=== PATIENT | female | born 1995 | race Hispanic/Latino ===

== ENCOUNTER → 2023-11-19 | Outpatient (CLI) | payer OTHER | LOC: M RAD 07:50 | PROVIDERS: ATTEND Nurse Practitioner Adult Health | DX: R74.8 Abnormal levels of other serum enzymes (principal) ==

== ENCOUNTER → 2024-01-19 | Outpatient (REF) | payer OTHER | LOC: M SFHCWAGY 12:39 | PROVIDERS: ATTEND Nurse Practitioner Family | DX: Z12.4 Encounter for screening for malignant neoplasm of cervix (principal); Z01.419 Encounter for gynecological examination (general) (routine) without abnormal findings; Z77.9 Other contact with and (suspected) exposures hazardous to health ==